=== PATIENT | male | born 1945 | race Caucasian/White ===

== ENCOUNTER 2019-05-19 15:18 | Inpatient (IN) ==
[2019-05-19 17:08] LABS: INR 1.1; Prothrombin Time 12.6 Seconds (9.4-12.1)
[2019-05-19 17:11] LABS: Activated Partial Thrombo Time 28.3 Seconds (26.0-36.0)
[2019-05-19 17:34] LABS: Alanine Aminotransferase 14 Units/L (7-52); Albumin 3.7 g/dL (3.5-5.7); Albumin/Globulin Ratio 1.9 (1.1-2.2); Alkaline Phosphatase 73 Units/L (34-104); Aspartate Amino Transferase 14 Units/L (13-39); Bilirubin,Total 0.3 mg/dL (0.3-1.0); Blood Urea Nitrogen > 130 mg/dL (8-23); Calcium 8.9 mg/dL (8.6-10.3); Carbon Dioxide 18 mEq/L (23-29); Chloride 92 mEq/L (98-107); Glucose 103 mg/dL (70-105); Magnesium 2.3 mg/dL (1.6-2.6); Potassium 4.7 mEq/L (3.5-5.1); Sodium 132 mEq/L (136-145); Total Protein 5.7 g/dL (6.4-8.9); eGFR For African Americans 6 (> 60); eGFR For Non-African Americans 5 (> 60)
[2019-05-19 18:00] LABS: Basophils % 0.4 %; Nucleated Red Blood Cells 0.1 /100 WBC (0)
[2019-05-19 18:01] LABS: Basophils # 0.1 K/mcL (0.0-0.2); Eosinophils # 0.2 K/mcL (0.0-0.6); Eosinophils % 1.5 %; Hematocrit 15.3 % (37.5-50.1); Lymphocytes # 1.9 K/mcL (0.6-4.6); Lymphocytes % 13.5 %; Mean Corpuscular HGB Conc 32.7 g/dL (31.6-35.5); Mean Corpuscular Hemoglobin 30.5 pg (28.0-33.3); Mean Corpuscular Volume 93.3 fL (83.0-100.0); Mean Platelet Volume 9.6 fL (9.4-12.4); Monocytes # 0.9 K/mcL (0.0-1.3); Monocytes % 6.3 %; Neutrophils # 10.6 K/mcL (1.6-8.9); Platelet Count 217 K/mcL (140-400); Red Blood Count 1.64 M/mcL (4.19-5.50); Red Cell Distribution Width 17.4 % (11.5-14.5); Segmented Neutrophils % 77.3 %; White Blood Count 13.7 K/mcL (4.3-11.1)
[2019-05-19] MEDS ORDERED: 0.9 % Sodium Chloride 500 ML ONE (19:43)
[2019-05-19] MEDS ORDERED: cefTRIAXone 2,000 MG in Water for inj. (sterile) 20 ML IVP ONE (19:56)
[2019-05-19] MEDS ORDERED: Naloxone 0.4 MG/ML INJ IVP PRN (20:52)
[2019-05-19] MEDS: Pantoprazole 40 MG VIAL IVP SCH (21:55)
[2019-05-19] MEDS: Nicotine 14 MG PATCH.TD24 TD SCH (21:56)
[2019-05-19] MEDS ORDERED: 0.9 % Sodium Chloride 250 ML IVC SCH (22:15)
[2019-05-19 23:39] LABS: Bilirubin,Urine Negative (Negative); Blood,Urine Large (Negative); Clarity,Urine Turbid (Clear); Color,Urine Yellow (Yellow); Glucose,Urine (UA) Normal (Normal); Ketones,Urine Negative (Negative); Leukocyte Esterase,Urine Large (Negative); Nitrite,Urine Negative (Negative); Protein,Urine 100 mg/dL (Neg-Trace); Specific Gravity,Urine 1.014 (1.010-1.025); Urobilinogen,Urine Normal (Normal)
[2019-05-19 23:41] LABS: Bacteria,Urine Many per hpf (None-Few); RBC,Urine TNTC per hpf (0-3); Squamous Epithelial Cell,Urine Moderate per lpf (None-Few); WBC,Urine TNTC per hpf (0-3)
[2019-05-20 04:10] LABS: Basophils # 0.1 K/mcL (0.0-0.2); Basophils % 0.4 %; Eosinophils # 0.2 K/mcL (0.0-0.6); Eosinophils % 1.4 %; Hematocrit 20.2 % (37.5-50.1); Hemoglobin 6.4 g/dL (12.9-16.9); Lymphocytes # 1.5 K/mcL (0.6-4.6); Lymphocytes % 11.2 %; Mean Corpuscular HGB Conc 31.7 g/dL (31.6-35.5); Mean Corpuscular Hemoglobin 29.2 pg (28.0-33.3); Mean Corpuscular Volume 92.2 fL (83.0-100.0); Mean Platelet Volume 9.1 fL (9.4-12.4); Monocytes # 0.7 K/mcL (0.0-1.3); Monocytes % 5.5 %; Neutrophils # 10.7 K/mcL (1.6-8.9); Nucleated Red Blood Cells 0.1 /100 WBC (0); Platelet Count 199 K/mcL (140-400); Red Blood Count 2.19 M/mcL (4.19-5.50); Red Cell Distribution Width 16.6 % (11.5-14.5); Segmented Neutrophils % 80.5 %; White Blood Count 13.3 K/mcL (4.3-11.1)
[2019-05-20 04:29] LABS: Alanine Aminotransferase 12 Units/L (7-52); Albumin 3.4 g/dL (3.5-5.7); Albumin/Globulin Ratio 1.6 (1.1-2.2); Alkaline Phosphatase 68 Units/L (34-104); Aspartate Amino Transferase 11 Units/L (13-39); Bilirubin,Total 0.4 mg/dL (0.3-1.0); Blood Urea Nitrogen > 130 mg/dL (8-23); Calcium 8.7 mg/dL (8.6-10.3); Carbon Dioxide 18 mEq/L (23-29); Chloride 94 mEq/L (98-107); Globulin 2.1 g/dL (2.4-3.5); Glucose 91 mg/dL (70-105); Magnesium 2.2 mg/dL (1.6-2.6); Phosphorous 11.1 mg/dL (2.7-4.5); Potassium 4.7 mEq/L (3.5-5.1); Sodium 133 mEq/L (136-145); Total Protein 5.5 g/dL (6.4-8.9); eGFR For African Americans 5 (> 60); eGFR For Non-African Americans 4 (> 60)
[2019-05-20] MEDS ORDERED: 0.9 % Sodium Chloride 250 ML IVC SCH (05:45)
[2019-05-20] MEDS ORDERED: 0.9 % Sodium Chloride 250 ML ONE (05:50)
[2019-05-20] MEDS: Pantoprazole 40 MG VIAL IVP SCH (05:53)
[2019-05-20] MEDS ORDERED: *HR* Propofol 200 MG/20 ML VIAL IVP ONE (06:29)
[2019-05-20] MEDS ORDERED: Lidocaine -MPF 2% 2 ML VIAL ONE (06:29)
[2019-05-20] MEDS ORDERED: Dextrose Gel 15 GM/37.5 ML TUBE PO PRN ×2 (07:23)
[2019-05-20] MEDS ORDERED: *HR* Dextrose 50 % in Water (Syg) 50 ML SYRINGE IVP PRN (07:23)
[2019-05-20] MEDS ORDERED: D5% in Water 1,000 ML IVC PRN (07:23)
[2019-05-20] MEDS ORDERED: 0.9 % Sodium Chloride 250 ML IVC PRN (08:39)
[2019-05-20] MEDS ORDERED: 0.9 % Sodium Chloride 1,000 ML PRIME SCH (08:45)
[2019-05-20] MEDS: Nicotine 14 MG PATCH.TD24 TD SCH (09:12)
[2019-05-20 09:52] LABS: Basophils # 0.1 K/mcL (0.0-0.2); Basophils % 0.4 %; Eosinophils # 0.2 K/mcL (0.0-0.6); Eosinophils % 0.9 %; Hematocrit 22.9 % (37.5-50.1); Hemoglobin 7.5 g/dL (12.9-16.9); Immature Granulocytes % 0.8 % (0-4); Lymphocytes # 1.3 K/mcL (0.6-4.6); Lymphocytes % 7.9 %; Mean Corpuscular HGB Conc 32.8 g/dL (31.6-35.5); Mean Corpuscular Hemoglobin 30.2 pg (28.0-33.3); Mean Corpuscular Volume 92.3 fL (83.0-100.0); Mean Platelet Volume 9.5 fL (9.4-12.4); Monocytes # 0.8 K/mcL (0.0-1.3); Monocytes % 4.9 %; Neutrophils # 14.4 K/mcL (1.6-8.9); Platelet Count 199 K/mcL (140-400); Red Blood Count 2.48 M/mcL (4.19-5.50); Red Cell Distribution Width 16.2 % (11.5-14.5); Segmented Neutrophils % 85.1 %; White Blood Count 16.9 K/mcL (4.3-11.1)
[2019-05-20 10:12] LABS: Hepatitis B Surface Antibody 47.35 mIU/mL
[2019-05-20 10:22] LABS: Hepatitis B Surface Antigen Nonreactive (Nonreactive)
[2019-05-20] MEDS ORDERED: Insulin LISPRO 300 UNITS/3 ML VIAL SQ SCH (12:00)
[2019-05-20] MEDS ORDERED: amLODIPine 5 MG TABLET PO SCH (12:30)
[2019-05-20 14:56] VITALS: BP 153/75
[2019-05-20 16:00] LABS: Hepatitis B Surface Antigen Nonreactive (Nonreactive)
[2019-05-20 16:29] LABS: Hepatitis C Virus Antibody Nonreactive (Nonreactive)
[2019-05-20 16:30] LABS: Hepatitis A Antibody IgM Nonreactive (Nonreactive); Hepatitis B Core IgM Nonreactive (Nonreactive)
[2019-05-22 10:24] LABS: AFP Tumor Marker Non-Pregnant 2 ng/mL (0-9)
[2019-05-22 15:39] LABS: ANA IgG by ELISA NONE DETECTED (None Detected)
[2019-05-23 10:34] LABS: F-Actin (sm muscle) Ab IgG 4 Units (0-19)
== END 2019-05-20 16:14 | disposition left against medical advice (07) | DRG 377 ==
LOC: EMEROOARM 15:18 → 2ANU 15:18 → SUATTDRO 19:24 → 2ANU 20:27
PROVIDERS: ADMIT Family Medicine; ATTEND Internal Medicine